=== PATIENT | female | born 1955 | race Caucasian/White ===

== ENCOUNTER → 2016-10-27 12:27 | Outpatient (CLI) | payer MEDICARE ==
[2014-08-27 10:40] VITALS: BMI 21.8
[~2016-10-27 12:27] MED LIST: ALENDRONATE SOD70 MG PO; AZULFIDINE500 MG PO; CIMZIA400 MG/2 M SQ; EZFE 200200 MG PO; FOLIC ACID1 MG PO; GINKO BILOBA PO; HYDROCODONE-APA1 TAB PO; IBUPROFEN800 MG PO; METHOTREXATE2.5 MG PO; MSM PO; OYSCO 500+D TAB1 TAB PO; PLAQUENIL200 MG PO; PREDNISONE5 MG PO; RESTORIL15 MG PO; SLOW-MAG 64 MG64 MG PO; TOPROL XL50 MG PO; ULTRAM50 MG PO; VITAMIN D5000 UNIT PO
== END | disposition home or self-care (01) ==
LOC: D.CT 12:27
DX: I10 Essential (primary) hypertension (principal)